=== PATIENT | female | born 1960 | race Caucasian/White ===

== ENCOUNTER 2017-04-23 19:15 | Emergency (ER) | payer BC, OTHER ==
[2017-04-23 19:57] LABS: Bilirubin Negative (Negative); Blood, Urine Large (Negative); Glucose, Urine (Dipstick) Negative (Negative); Leukocyte Negative (Negative); Nitrite Negative (Negative); Protein, Urine (Dipstick) Negative (Neg-Trace); Urobilinogen 0.2 mg/dL (0.2-1.0); pH, Urine 5.5 (5.0-9.0)
[2017-04-23 19:58] LABS: Clarity SL HAZY (Clear)
[2017-04-23 20:10] LABS: Crystals/HPF 3+ CA OXALATE HPF (Negative); Squamous Epithelial 0-3 HPF (0-3)
[2017-04-23 20:11] LABS: Specific Gravity, Urine 1.031 (1.002-1.036)
[2017-04-23] MEDS ORDERED: Ketorolac Tromethamine 30 MG/ML VIAL ONE (20:34)
[2017-04-23] MEDS ORDERED: Sodium Chloride 0.9% 1,000 ML ONE (20:50)
[2017-04-23 20:57] LABS: #Basophils 0.1 thou/uL (0.0-0.2); #Eosinphils 0.1 thou/uL (0.0-0.7); #Lymphocytes 2.4 thou/uL (1.20-3.40); #Monocytes 0.9 thou/uL (0.11-0.59); #Neutrophils 9.7 thou/uL (1.40-6.50); %Basophils 0.7 % (0.0-1.0); %Eosinophils 0.9 % (0.0-10.0); %Lymphocytes 18.4 % (21.0-51.0); %Monocytes 6.5 % (0.0-10.0); %Neutrophils 73.5 % (42.0-75.0); Hemoglobin 13.7 g/dL (12.0-16.0); Mean Corpuscular HGB CONC 32.9 g/dL (32.0-36.0); Mean Corpuscular Hemoglobin 31.4 pg (27.0-31.0); Mean Corpuscular Volume 95.5 fl (81.0-99.0); Mean Platelet Volume 8.7 fL (7.4-10.4); Platelet Count 207 thou/uL (130-400); RBC Distribution Width 12.3 % (11.5-14.5); Red Blood Cell (RBC) Count 4.36 mill/uL (4.20-5.40); White Blood Cell (WBC) Count 13.2 thou/uL (4.8-10.8)
[2017-04-23 21:09] LABS: ALT (SGPT) 16 U/L (8-55); AST (SGOT) 14 U/L (5-34); Albumin 4.3 g/dL (3.5-5.0); Alkaline Phosphatase 82 U/L (40-150); Anion Gap 16 mmol/L (10-20); BUN (Urea Nitrogen) 15 mg/dL (9.8-20.1); Bilirubin, Total 0.5 mg/dL (0.2-1.2); Calc. Creatinine Clearance 0 mL/min (70-130); Calcium 9.5 mg/dL (7.8-10.44); Carbon Dioxide 20 mmol/L (22-29); Chloride 110 mmol/L (98-107); Estimated GFR-MDRD 47; Globulin 2.7 g/dL (2.4-3.5); Glucose 111 mg/dL (70-105); Sodium 142 mmol/L (136-145)
[2017-04-23] MEDS ORDERED: methylPREDNISolone Sod Succ/PF 125 MG/2 ML VIAL ONE (21:12)
[2017-04-23] MEDS ORDERED: Sodium Chloride 0.9% 100 ML ONE (22:32)
[2017-04-23] MEDS ORDERED: Tamsulosin HCl 0.4 MG CAP ONE (22:32)
[2017-04-23] MEDS ORDERED: cefTRIAXone\\ROCEPHIN 1 GM VIAL ONE (22:32)
--- NOTE | 2017-04-23 23:37 | CT ---
EXAM: ABDOMEN CT WITHOUT CONTRAST PELVIC CT WITHOUT CONTRAST 04/23/17 HISTORY: Right lower quadrant and back pain radiating to the lower abdomen. COMPARISON: None. TECHNIQUE: Abdomen and pelvic CT are performed without IV or oral contrast. Coronal reformatted images are subm itted for interpretation. FINDINGS: ABDOMEN CT: Chronic changes in the lung bases. Heart size is normal. No significant pericardial fluid. Descendin g thoracic aorta and abdominal aorta have a normal caliber have a normal caliber. No periaortic fat stranding. Gallbladder is surgically absent. Limited evaluation of the solid organs due to lack of IV contrast. Grossly, no solid organ abnormali ty. No gastrohepatic, retrocrural or periportal lymphadenopathy. No mesenteric mass, lymphadenopathy, free air or free fluid. There is a small umbilical hernia conta ining mesenteric fat. Limited evaluation of the alimentary canal due to lack of oral contrast administration. No evidence of bowel obstruction. Ileocecal junction is normal. Normal caliber appendix. Scattered fecal materia l in a nondistended, nondilated colon. There is moderate right sided hydronephrosis as well as hydroureter and periureteral fat stranding i nvolving the proximal ureter. There is a solitary calcification in the mid right ureter measuring ap proximately 5 mm. The remainder of the right extrarenal collecting system is decompressed. Left kidn ey is unremarkable for obstructive uropathy. PELVIC CT: The uterus and adnexa are unremarkable. No pelvic mass, lymphadenopathy, free air or free fluid. Uri nary bladder is grossly unremarkable. There are no osteoblastic or osteolytic lesions. IMPRESSION: Moderate right sided obstructive uropathy and proximal hydroureter secondary to a solitary 5 mm calc ification in the mid right ureter. POS: [facility]
== END 2017-04-23 23:18 | disposition home or self-care (01) ==
LOC: NAV ERS 19:15
DX: N13.2 Hydronephrosis with renal and ureteral calculous obstruction (principal); F17.210 Nicotine dependence, cigarettes, uncomplicated
CPT/HCPCS: 74176; 80053; 81003; 81015; 85025; 96361; 96365; 96375; J0696; J1885; J2930; J7050